=== PATIENT | male | born 1955 | race Caucasian/White ===

== ENCOUNTER 2023-01-10 04:33 | Day surgery (SDC) | payer OTHER ==
[2023-01-08 16:18] VITALS: BMI 26.3
[2023-01-10 08:24] VITALS: TEMP 97.7
[2023-01-10 09:32] VITALS: BP 112/63; PULSE 65; RESP 18
== END 2023-01-10 09:25 | disposition home or self-care (01) ==
LOC: JASU-ENDO 04:33
PROVIDERS: ATTEND Internal Medicine Gastroenterology
PROC: 0DJD8ZZ Inspection of Lower Intestinal Tract, Via Natural or Artificial Opening Endoscopic (ICD-10-PCS; principal; 2023-01-10 08:00)
DX: Z12.11 Encounter for screening for malignant neoplasm of colon (principal)